=== PATIENT | male | born 1990 | race African-American/Black ===

== ENCOUNTER 2020-05-10 11:47 | Emergency (ER) | payer SELFPAY ==
[~2020-05-10] VITALS: Ht 165.1 cm; Wt 79.5 kg
[2020-05-10 11:55] VITALS: BP 155/67
--- NOTE | 2020-05-10 12:11 | ED.ADGEN ---
Past Medical History Additional Past Medical Histor: Keloid scarring General Adult EDM: Chief Complaint: OTHER COMPLAINTS HPI: HPI: Patient is a 29-year-old male who arrives ambulatory to the emergency department complaining of multiple regions of his body that are draining. Patient has a history of keloid scarring which she reports is atraumatic. Patient states this has been ongoing now for a month despite using [id number] medications he has been unsuccessful in addressing this. The patient states these lesions tend to be painful when he itches. Despite this condition he denies any ongoing treatment by documentation analyst. He further denies any history of recent illness. He is awake, alert and nontoxic appearing. Review of Systems: Review of Systems: Constitutional: Denies fever or chills. [] Eyes: Denies change in visual acuity. [] HENT: Denies nasal congestion or sore throat. [] Respiratory: Denies cough or shortness of breath. [] Cardiovascular: Denies chest pain or edema. [] GI: Denies abdominal pain, nausea, vomiting, bloody stools or diarrhea. [] : Denies dysuria. [] Musculoskeletal: Denies back pain or joint pain. [] Integument: Patient reports to itching as well as drainage associated with keloid scarring. He denies rash. [] Neurologic: Denies headache, focal weakness or sensory changes. [] Endocrine: Denies polyuria or polydipsia. [] Lymphatic: Denies swollen glands. [] Psychiatric: Denies depression or anxiety. [] Allergies: Allergies: Allergies Coded Allergies Type Severity Reaction Last Updated Verified No Known Drug Allergies 05/10/20 No Physical Exam: PE: Constitutional: Well developed, well nourished, no acute distress, non-toxic appearance. [] HENT: Normocephalic, atraumatic, bilateral external ears normal, oropharynx moist, no oral exudates, nose normal. [] Eyes: PERRLA, EOMI, conjunctiva normal, no discharge. [] Neck: Normal range of motion, no tenderness, supple, no stridor. [] Cardiovascular:Heart rate regular rhythm, no murmur [] Lungs & Thorax: Bilateral breath sounds clear to auscultation [] Abdomen: Bowel sounds normal, soft, no tenderness, no masses, no pulsatile masses. [] Skin: Patient has multiple keloids of his upper chest and upper back. There are also keloids of his face and neck. There are multiple regions across his upper chest and back which appear to be in various stages of healing relative to previous scratching. There also appears to be multiple regions which are draining what appears to be purulent material. These areas are not necessarily erythematous nor are they tender. There are no other rashes present otherwise. Extremities: No tenderness, no cyanosis, no clubbing, ROM intact, no edema. [] Neurologic: Alert and oriented X 3, normal motor function, normal sensory function, no focal deficits noted. [] Psychologic: Affect normal, judgement normal, mood normal. [] Current Patient Data: Vital Signs: Vital Signs Date Time Temp Pulse Resp B/P (MAP) Pulse Ox O2 Delivery O2 Flow Rate FiO2 05/10/20 11:55 98.6 108 18 155/67 (96) 97 Room Air 98.6 EKG: EKG: [] Heart Score: Risk Factors: Risk Factors: DM, Current or recent (<one month) smoker, HTN, HLP, family history of CAD, obesity. Risk Scores: Score 0 - 3: 2.5% MACE over next 6 weeks - Discharge Home Score 4 - 6: 20.3% MACE over next 6 weeks - Admit for Clinical Observation Score 7 - 10: 72.7% MACE over next 6 weeks - Early Invasive Strategies Radiology/Procedures: Radiology/Procedures: [] Course & Med Decision Making: Course & Med Decision Making Pertinent Labs and Imaging studies reviewed. (See chart for details) The patient remains awake, alert and in no acute distress. After inspecting these lesions it is very difficult to tell whether these are infected or this is more chronic condition relative to the patient's extensive history of keloid scarring. Nonetheless I do believe the patient warrants follow-up with a documentation analyst for definitive management. As a precaution I have elected to place the patient on antibiotics in order to help with his condition. I have also stressed the need for him to follow-up with a documentation analyst of his choice. He is nontoxic-appearing and stable for discharge. [] Dragon Disclaimer: Dragon Disclaimer: This electronic medical record was generated, in whole or in part, using a voice recognition dictation system. Departure Departure Impression: Primary Impression: Keloid skin disorder Disposition: 01 DC HOME SELF CARE/HOMELESS Condition: STABLE Referrals: NO PCP (PCP) VENKATESH GARCIA MD Patient Instructions: Rash Scripts Sulfamethoxazole/Trimethoprim (BACTRIM DS TABLET) 1 Each Tablet 1 TAB PO BID for 10 Days, #20 TAB 0 Refills Prov: SHARON CASTELAN DO 05/10/20 Cephalexin (KEFLEX) 500 Mg Capsule 500 MG PO QID for 10 Days, #40 CAP Prov: SHARON CASTELAN DO 05/10/20 SHARON CASTELAN DO May 10, 2020 12:11
[2020-05-10] MEDS ORDERED: CEPH-264 PO (12:15)
[2020-05-10] MEDS ORDERED: SULF1TAB24 PO (12:15)
== END 2020-05-10 12:30 | disposition home or self-care (01) ==
LOC: ER 11:47
DX: L91.0 Hypertrophic scar (principal); L29.9 Pruritus, unspecified
CPT/HCPCS: 99283